=== PATIENT | male | born 1950 | race Hispanic/Latino ===

== ENCOUNTER 2017-03-28 10:22 | Emergency (ER) | payer OTHER ==
[2017-03-28 10:32] VITALS: BP 129/69; PULSE 89; RESP 20; TEMP 98; O2SAT 98; BMI 38.0
--- NOTE | 2017-03-28 11:30 | ED PDOC ---
HPI: General Adult Time Seen by Provider: 03/28/17 10:50 Chief Complaint (Nursing): Lower Extremity Problem/Injury History Per: Patient Additional Complaint(s): Pt. states he had a R total knee replacement done by [facility] in 01/2016. States on 05/2016 he fell down and has had pain and swelling to the knee since. He was evaluated again by Dr. Gonzáles and subsequently had a bone density scan done of the R knee. Dr. Gonzáles contacted him yesterday and instructed him to come to ED for joint aspiration of the knee. Denies fever, numbness, tingling, calf pain. Past Medical History Reviewed: Historical Data, Nursing Documentation, Vital Signs Vital Signs: Last Vital Signs Temp 98 F 03/28/17 10:31 Pulse 89 03/28/17 10:31 Resp 20 03/28/17 10:31 BP 129/69 03/28/17 10:31 Pulse Ox 98 03/28/17 11:33 - Medical History PMH: Anemia, Arthritis, HTN, Hypercholesterolemia Denies: Chronic Kidney Disease - Family History Family History: States: No Known Family Hx - Home Medications Home Medications: Ambulatory Orders Medication Instructions Recorded Acarbose [Precose] 100 mg PO TID 01/04/16 Atorvastatin [Lipitor] 40 mg PO DAILY 01/04/16 Canagliflozin [Invokana] 100 mg PO DAILY 01/04/16 Diltiazem HCl [Diltiazem ER] 360 mg PO DAILY 01/04/16 Gabapentin [Neurontin] 300 mg PO BID 01/04/16 Glimepiride [amaRYL] 4 mg PO BID 01/04/16 Ramipril [Altace] 10 mg PO DAILY 01/04/16 SITagliptin [Januvia] 100 mg PO QPM 01/04/16 MetFORMIN [glucoPHAGE] 1,000 mg PO BIDWM #0 tab 01/18/16 Aspirin/Calcium Carbonate/Mag 325 mg PO DAILY #10 tablet 01/21/16 [Aspirin Buffered 325 mg Tab] Celecoxib [celeBREX] 200 mg PO DAILY 01/21/16 Acetaminophen [Tylenol 325mg tab] 650 mg PO Q4 PRN #0 tab 01/30/16 Aspirin, Buffered [Bufferin] 325 mg PO DAILY #0 tab 01/30/16 DAPTOmycin [Cubicin] 790 mg IV QOTHERDAY #0 vial 01/30/16 oxyCODONE/Acetaminophen [Percocet 1 tab PO Q4 PRN #0 tab 01/30/16 5/325 mg Tab] oxyCODONE/Acetaminophen [Percocet 2 tab PO Q4 PRN #0 tab 01/30/16 5/325 mg Tab] - Allergies Allergies/Adverse Reactions: Allergies Allergy/AdvReac Type Severity Reaction Status Date / Time No Known Allergies Allergy Verified 01/04/16 06:30 Review of Systems ROS Statement: Except As Marked, All Systems Reviewed And Found Negative Physical Exam - Physical Exam Appears: Positive for: Well, Non-toxic, No Acute Distress Skin: Positive for: Normal Color, Warm. Negative for: Rash Pulses-Dorsalis Pedis (R): 2+ Extremity: Positive for: Other (R knee with moderate swelling and mild tenderness; healed anterior scar; moderate warmth and no erythema; no break in skin integrity; LROM secondary to pain). Negative for: Calf Tenderness (b/l) Neurologic/Psych: Positive for: Alert, Oriented - ECG O2 Sat by Pulse Oximetry: 98 - Progress ED Course And Treament: Labs ordered. Dr. Gonzáles in ED and evaluated pt. and states pt. requires subspecialty care that is not available in this hospital. Pt. wishes to seek subspecialty care on his own. Pt. left ED with Dr. Gonázles. Disposition - Clinical Impression Clinical Impression: Knee pain - Patient ED Disposition Is Patient to be Admitted: No - Disposition Referrals: Josy Gonzáles MD [Staff Provider] - Disposition: Routine/Home Disposition Time: 11:20 Condition: STABLE Instructions: Knee Pain (ED) Forms: [employer] ([place]) Print Language: GUAMANIAN
== END 2017-03-28 11:25 | disposition home or self-care (01) ==
LOC: H.ER 10:22 → EDSEX 10:22 → H.ER 11:25
DX: M25.561 Pain in right knee (principal); Z96.651 Presence of right artificial knee joint; E78.00 Pure hypercholesterolemia, unspecified; I10 Essential (primary) hypertension; Z79.82 Long term (current) use of aspirin; Z79.84 Long term (current) use of oral hypoglycemic drugs